=== PATIENT | female | born 1980 | race Caucasian/White ===

== ENCOUNTER 2020-01-23 19:15 | Inpatient (IN) | payer BC ==
[~2020-01-23] VITALS: Ht 152.4 cm; Wt 70.0 kg
--- NOTE | 2020-01-23 19:30 | NUR ---
PT BIB [facility] WITH A C/O NUMBESS AND INABILITY TO SPEAK VETERINARY PHARMACOLOGIST. PT STATED THAT SHE WAS DRIVING AND NOTICED SHE WAS HAVING DIFFICULTY TALKING TO HER DAUGHTER IN [place] (APPROX 1 HR VETERINARY PHARMACOLOGIST). PT GOT HOME, STILL DID NOT FEEL WELL, AND STARTED SLURRING HER SPEECH AND WAS NOT ABLE TO SPEAK ( PER PT APPROX 20 MINS). PT ARRIVED AND ALL SYMPTOMS HAVE RESOLVED.
--- NOTE | 2020-01-23 19:31 | NUR ---
dr. birmingham at bedside for eval. urine collected. sent to lab
--- NOTE | 2020-01-23 19:35 | NUR ---
CODE STROKE CALLED
--- NOTE | 2020-01-23 19:35 | NUR ---
Code stroke called by Dr Will
--- NOTE | 2020-01-23 19:36 | NUR ---
IV STARTED AND BLOOD DRAWN
--- NOTE | 2020-01-23 19:40 | NUR ---
PT LEFT FOR CT.
[2020-01-23 19:44] LABS: BASOPHILS % (AUTO) 0.7 % (0.0-2.0); EOSINOPHILS % (AUTO) 0.7 % (0.0-6.0); HEMATOCRIT 42 % (33-45); HEMOGLOBIN 14.2 g/dL (11.5-14.8); LYMPHOCYTES % (AUTO) 33.5 % (20.0-44.0); MEAN CORPUSCULAR HGB CONC 34 g/dl (31.0-36.0); MEAN CORPUSCULAR VOLUME 97 fL (82-100); MONOCYTES # (AUTO) 0.5 /CMM (0.1-1.30); NEUTROPHILS # (AUTO) 3.4 /CMM (1.8-8.9); NEUTROPHILS % (AUTO) 57.1 % (43.0-81.0); PLATELET COUNT (AUTO) 199 /CMM (150-450); RED BLOOD CELL COUNT(AUTO) 4.35 MIL/uL (4.0-5.2); WHITE BLOOD COUNT (AUTO) 5.9 K/uL (4.3-11.0)
--- NOTE | 2020-01-23 19:47 | NUR ---
CHEST XRAY TAKEN
--- NOTE | 2020-01-23 19:49 | NUR ---
pt returned from radiology via [facility]
--- NOTE | 2020-01-23 19:53 | NUR ---
pt speaking to tele neurologist at this time.
--- NOTE | 2020-01-23 19:55 | NUR ---
ON PHONE WITH RADIOLOGY
[2020-01-23 19:58] LABS: CALCIUM, SERUM 8.9 mg/dL (8.5-10.1); CARBON DIOXIDE 24 mmol/L (21-32); CHLORIDE 102 mmol/L (98-107); CREATININE 0.9 mg/dL (0.6-1.3); GLUCOSE 108 mg/dL (74-106); POTASSIUM 3.3 mmol/L (3.5-5.1); SODIUM SERUM 137 mmol/L (136-145); UREA NITROGEN, BLOOD 13 mg/dL (7-18)
[2020-01-23] MEDS ORDERED: IV NS 0.9% 1,000 ML BAG IV ONE (20:00)
[2020-01-23 20:04] LABS: ALANINE AMINOTRANSFERASE 69 U/L (12-78); ALBUMIN 3.7 g/dL (3.4-5.0); ALKALINE PHOSPHATASE 65 U/L (46-116); ASPARTATE AMINOTRANSFERASE 28 U/L (15-37); BILIRUBIN,DIRECT 0.1 mg/dL (0.0-0.2); BILIRUBIN,TOTAL 0.3 mg/dL (0.2-1.0); TOTAL PROTEIN, SERUM 7.2 g/dL (6.4-8.2)
[2020-01-23] MEDS ORDERED: CT SWABBABLE VALVE TRANS SET 1 EA INFUS.SET MC ONE (20:09)
[2020-01-23] MEDS ORDERED: IV NS 0.9% 250 ML IV ONE (20:09)
[2020-01-23] MEDS ORDERED: IOHEXOL-350 100 ML VIAL IV ONE (20:09)
--- NOTE | 2020-01-23 20:14 | NUR ---
PT LEFT FOR CT VIA GURNEY.
[2020-01-23 20:21] LABS: CHOLESTEROL 268 mg/dL (<200); HDL CHOLESTEROL 68 mg/dL (40-60); LDL 169 mg/dL (0-99); TRIGLYCERIDES 272 mg/dL (30-150)
--- NOTE | 2020-01-23 20:27 | NUR ---
PT RETURNED FROM CTA.
[2020-01-23] MEDS ORDERED: ASPIRIN 325 MG TABLET ONE (20:53)
[2020-01-23] MEDS ORDERED: ASPIRIN 325 MG TABLET PO ONE (21:00)
--- NOTE | 2020-01-23 21:00 | NUR ---
DR CORTEZ IS SPEAKING TO THE PT RE: ADMITTING PT.
--- NOTE | 2020-01-23 21:20 | NUR ---
TELE BED 315-2
--- NOTE | 2020-01-23 21:34 | NUR ---
REPORT GIVEN TO JUSTIN WOODARD
[2020-01-23 21:49] VITALS: BP 124/71
[2020-01-23 21:50] VITALS: BP 124/71
--- NOTE | 2020-01-23 22:31 | NUR ---
ADMISSION 39 y/o female from home admitted, patient is A/O x4. Skin checked done, skin intact, ambulates independently, speech clear, no c/o chest pain. Safety measures discussed, verbalized understanding. Notified Dr. Alvarez.
[2020-01-23] MEDS ORDERED: POTASSIUM CHLORIDE 20 MEQ TAB.PRT.SR PO ONE (23:30)
[2020-01-24] VITALS: BP 109/57
[2020-01-24 04:00] VITALS: BP 102/56
[2020-01-24 04:45] VITALS: BP 102/56
--- NOTE | 2020-01-24 05:38 | NUR ---
TEXTED DR. ABRAHAM FOR MRI APPROVAL.
--- NOTE | 2020-01-24 06:29 | NUR ---
EDUCATIONAL PSYCHOLOGIST: END OF SHIFT REPORT Patient in bed, adequate oxygenation on room air, denies SOB. Sinus rhythm in the Tele monitor. NIH stroke scale score 0. Neuro consult to follow. Plan for MRI Brain w contrast and MRA neck wwo contrast, consent signed. Fall precaution maintained.
[2020-01-24 06:39] LABS: BASOPHILS % (AUTO) 0.6 % (0.0-2.0); EOSINOPHILS % (AUTO) 1.1 % (0.0-6.0); HEMATOCRIT 42 % (33-45); HEMOGLOBIN 13.9 g/dL (11.5-14.8); LYMPHOCYTES % (AUTO) 44.3 % (20.0-44.0); MEAN CORPUSCULAR HGB CONC 33 g/dl (31.0-36.0); MEAN CORPUSCULAR VOLUME 97 fL (82-100); MONOCYTES # (AUTO) 0.6 /CMM (0.1-1.30); MONOCYTES % (AUTO) 8.2 % (2.0-12.0); NEUTROPHILS # (AUTO) 3.1 /CMM (1.8-8.9); NEUTROPHILS % (AUTO) 45.8 % (43.0-81.0); PLATELET COUNT (AUTO) 195 /CMM (150-450); RED BLOOD CELL COUNT(AUTO) 4.29 MIL/uL (4.0-5.2); WHITE BLOOD COUNT (AUTO) 6.8 K/uL (4.3-11.0)
[2020-01-24 06:43] LABS: CALCIUM, SERUM 8.7 mg/dL (8.5-10.1); CREATININE 0.8 mg/dL (0.6-1.3)
[2020-01-24 06:50] LABS: C-REACTIVE PROTEIN 0.9 mg/dL (0.0-0.9); THYROID STIMULATING HORMONE 4.879 uIU/mL (0.358-3.74)
--- NOTE | 2020-01-24 07:43 | NUR ---
MASTER CONTROL TECHNICIAN OPENING NOTE PATIENT IN BED RESTING COMFORTABLY. PATIENT IN NO ACUTE DISTRESS. NO SOB NOTED. PATIENT BREATHING IS EVEN AND UNLABORED. PATIENT ON CARDIAC MONITORING READING SINUS RHYTHM HR 63. PATIENT BED ALARM IS ON. PATIENT SAFETY PRECAUTIONS IN PLACE. PATIENT BED IS LOCKED AND IN LOWEST POSITION. CALL LIGHT WITHIN REACH. WILL CONTINUE TO MONITOR.
[2020-01-24] MEDS ORDERED: PANT40TA4 PO (07:51)
[2020-01-24] MEDS ORDERED: ETHI1TAB31 PO (07:51)
[2020-01-24 08:00] VITALS: BP 108/71
[2020-01-24] MEDS ORDERED: ENOXAPARIN SODIUM 40 MG/0.4 ML DISP.SYRIN SQ SCH (09:00)
[2020-01-24] MEDS ORDERED: ASPIRIN EC 325 MG TABLET.DR PO SCH (09:00)
[2020-01-24 09:10] LABS: APPEARANCE,URINE CLEAR (CLEAR); BILIRUBIN,URINE NEGATIVE (NEGATIVE); BLOOD, URINE TRACE-INTA Ery/uL (NEGATIVE); COLOR,URINE YELLOW (YELLOW); KETONES,URINE NEGATIVE (NEGATIVE); LEUKOCYTE ESTERASE ,URINE NEGATIVE (NEGATIVE); NITRITE, URINE NEGATIVE (NEGATIVE); PROTEIN,URINE NEGATIVE (NEGATIVE); UGLUCOSE NEGATIVE (NEGATIVE); UROBILINOGEN,URINE 0.2 EU/dL (0.2)
[2020-01-24 09:48] LABS: BACTERIA,URINE None seen /HPF (None Seen); RBC,URINE 0-2 /HPF (0-2); WBC,URINE NONE SEEN /HPF (0-3)
[2020-01-24 09:49] LABS: SQUAMOUS EPITHELIAL CELL,UR None Seen /HPF (None Seen)
[2020-01-24] MEDS ORDERED: GADOTERIDOL 279.3 MG/ML VIAL IV ONE (15:16)
[2020-01-24 16:00] VITALS: BP 110/74
[2020-01-24] MEDS ORDERED: ATOR40TA PO (17:47)
[2020-01-24] MEDS ORDERED: ASPI-1152 PO (17:47)
[2020-01-24] MEDS ORDERED: [UNRECOGNIZED DRUG - CODE] PO (17:47)
--- NOTE | 2020-01-24 18:00 | NUR ---
MS RN NOTE PATIENT REFUSED SKIN ASSESSMENT, DESPITE EDUCATION OF RISKS VS BENEFITS.
--- NOTE | 2020-01-24 18:46 | NUR ---
MS WATER VALVE MECHANIC NOTE PATIENT MEDICALLY CLEARED FOR DISCHARGE. PATIENT IN NO ACUTE DISTRESS. NO SOB NOTED. PATIENT BREATHING IS EVEN AND UNLABORED. IV REMOVED. PATIENT STATES NO PAIN OR WEAKNESS. DC INSTRUCTIONS PROVIDED TO PATIENT. PATIENT VERBALIZED UNDERSTANDING. PATIENT BELONGINGS LIST SIGNED AND HAS BELONGINGS WITH HER. PATIENT REFUSED SKIN ASSESSMENT, DESPITE EDUCATION OF RISKS VS BENEFITS. PATIENT KEPT CLEAN, DRY AND COMFORTABLE THROUGHOUT SHIFT. NEEDS AND CONCERNS ADDRESSED. PATIENT AMBULATORY WITH STEADY GAIT GOING BACK HOME WITH . MD AWARE OF DISCHARGE.
[2020-01-24] MEDS ORDERED: SIMVASTATIN 20 MG TABLET PO SCH (22:00)
== END 2020-01-24 18:30 | disposition home or self-care (01) | DRG 69 ==
LOC: ER 19:19 → TELE 21:22 → MED 01-24 09:31
PROVIDERS: ATTEND Nurse Practitioner Acute Care
DX: G45.9 Transient cerebral ischemic attack, unspecified (principal); D68.61 Antiphospholipid syndrome; D68.69 Other thrombophilia; E66.9 Obesity, unspecified; R47.02 Dysphasia; E78.5 Hyperlipidemia, unspecified; G47.33 Obstructive sleep apnea (adult) (pediatric); Z68.30 Body mass index [BMI] 30.0-30.9, adult; R20.0 Anesthesia of skin; R40.2362 Coma scale, best motor response, obeys commands, at arrival to emergency department; R40.2142 Coma scale, eyes open, spontaneous, at arrival to emergency department; R40.2252 Coma scale, best verbal response, oriented, at arrival to emergency department; R29.700 NIHSS score 0
CPT/HCPCS: 36415; 70450-TC; 70496-TC; 70498-TC; 70553-TC; 71045-TC; 80048-TC; 80061-TC; 80076-TC; 80305; 81000-TC; 82962-TC; 84443-TC; 84484-TC; 84703-TC; 85025-TC; 85300; 85301; 85303; 85613; 85652-TC; 85670; 85705; 85730-TC; 85732; 86140-TC; 86147; 87081-TC; 87086-TC; 93307-TC; 97116-TC; 97530-TC; A9579; G0378; J1650; J7050; Q9967